=== PATIENT | female | born 1980 | race Caucasian/White ===

== ENCOUNTER 2025-02-20 18:05 | Inpatient (IN) | payer BC ==
[~2025-02-20] VITALS: Ht 165.1 cm; Wt 68.0 kg
[2025-02-20] MEDS ORDERED: ONDANSETRON 4 MG/2 ML VIAL ONE (18:37)
[2025-02-20] MEDS ORDERED: HYDROMORPHONE 1 MG/1 ML DISP.SYRIN IV ONE (18:45)
[2025-02-20] MEDS: ONDANSETRON 4 MG/2 ML VIAL IV ONE (19:00)
[2025-02-20] MEDS: IV NORMAL SALINE 1000 ML BAG IV ONE (19:12)
[2025-02-20 19:13] LABS: BASOPHILS % (AUTO) 0.1 % (0.0-2.0); EOSINOPHILS # (AUTO) 0.2 K/uL (0.0-0.7); EOSINOPHILS % (AUTO) 1.5 % (0.0-7.0); HEMATOCRIT 41.4 % (31.2-41.9); HEMOGLOBIN 13.5 g/dL (10.9-14.3); LYMPHOCYTES # (AUTO) 1.3 K/uL (0.8-4.8); LYMPHOCYTES % (AUTO) 8.7 % (20.5-51.5); MEAN CORPUSCULAR HEMOGLOBIN 30.6 uug (24.7-32.8); MEAN CORPUSCULAR HGB CONC 33 g/dL (32.3-35.6); MEAN CORPUSCULAR VOLUME 93.6 fL (75.5-95.3); MONOCYTES # (AUTO) 0.7 K/uL (0.1-1.30); MONOCYTES % (AUTO) 4.9 % (0.0-11.0); NEUTROPHILS # (AUTO) 12.9 K/uL (1.8-8.9); NEUTROPHILS % (AUTO) 84.8 % (38.5-71.5); PLATELET COUNT (AUTO) 247 K/uL (179-408); RED BLOOD CELL COUNT(AUTO) 4.42 MIL/uL (3.63-4.92); RED CELL DISTRIBUTION WIDTH 12.9 % (12.3-17.7); WHITE BLOOD COUNT (AUTO) 15.2 K/uL (3.8-11.8)
[2025-02-20] MEDS ORDERED: DICYCLOMINE HCL 20 MG/2 ML AMPUL IM SCH (19:15)
[2025-02-20] MEDS ORDERED: DICYCLOMINE HCL 20 MG TABLET ONE (19:18)
[2025-02-20 19:19] LABS: DIFFERENTIAL COMMENT 1
[2025-02-20 19:24] LABS: CARBON DIOXIDE 20 mmol/L (21-32); CHLORIDE 106 mmol/L (98-107); CREATININE 0.9 mg/dL (0.6-1.3); GLUCOSE 78 mg/dL (74-106); POTASSIUM 3.6 mmol/L (3.5-5.1); SODIUM SERUM 141 mmol/L (136-145); UREA NITROGEN, BLOOD 10 mg/dL (7-18)
[2025-02-20 19:29] LABS: ALANINE AMINOTRANSFERASE 13 U/L (14-59); ALKALINE PHOSPHATASE 84 U/L (50-136); ASPARTATE AMINOTRANSFERASE 15 U/L (15-37); BILIRUBIN,DIRECT 0.1 mg/dL (0.0-0.2); BILIRUBIN,TOTAL 0.5 mg/dL (0.2-1.0)
[2025-02-20 19:37] LABS: ALBUMIN 3.5 g/dL (3.4-5.0); LIPASE 48 U/L (16-77)
[2025-02-20 19:38] LABS: PREGNANCY TEST SERUM QUAN < 1 miul/L (0-6)
[2025-02-20 19:51] LABS: *BILIRUBIN,URIN NEGATIVE (NEGATIVE); *CLARITY,URINE CLEAR (CLEAR); *COLOR,URINE YELLOW (YELLOW); *KETONES,URINE 3+ (NEGATIVE); *PROTEIN,URINE NEGATIVE (NEGATIVE); *UROBILINOGEN,URINE 0.2 E.U./dl (NORMAL); LEUKOCYTE ESTERASE ,URINE NEGATIVE (NEGATIVE); NITRITE, URINE NEGATIVE (NEGATIVE); PH,URINE 5.5 (5.0-8.0); UGLUCOSE NEGATIVE (NEGATIVE)
[2025-02-20 19:53] LABS: *BLOOD, URINE TRACE (NEGATIVE)
[2025-02-20] MEDS ORDERED: diphenhydrAMINE 50 MG/1 ML VIAL ONE (20:04)
[2025-02-20] MEDS ORDERED: PROCHLORPERAZINE EDISYLATE 10 MG/2 ML VIAL ONE (20:04)
[2025-02-20] MEDS: PROCHLORPERAZINE EDISYLATE 10 MG/2 ML VIAL IV ONE (20:10)
[2025-02-20] MEDS: diphenhydrAMINE 50 MG/1 ML VIAL IV ONE (20:10)
[2025-02-20 20:14] LABS: BACTERIA,URINE FEW /HPF (NONE SEEN); RBC,URINE 0-3 /HPF (0-3); SQUAMOUS EPITHELIAL CELL,UR FEW /HPF (NONE SEEN); WBC,URINE 0-3 /HPF (0-3)
[2025-02-20] MEDS ORDERED: IOHEXOL 300MG/ML 100 ML INFUS..BTL ONE (20:16)
[2025-02-20] MEDS ORDERED: HYDROMORPHONE 1 MG/1 ML DISP.SYRIN ONE (21:37)
[2025-02-20] MEDS: HYDROMORPHONE 1 MG/1 ML DISP.SYRIN IV ONE (21:38)
[2025-02-20] MEDS ORDERED: REMEDY ESSENTIAL ZINC PASTE 113 GM TP PRN (22:45)
[2025-02-20] MEDS ORDERED: CEFTRIAXONE /D5W 50ML IVPB **ER PYXIS IV ONE (23:35)
[2025-02-20] MEDS: CEFTRIAXONE 1 G in IV DEXTROSE 5% 50 ML IV ONE (23:36)
[2025-02-21] MEDS ORDERED: HYDROMORPHONE 1 MG/1 ML DISP.SYRIN ONE (02:19)
[2025-02-21] MEDS: HYDROMORPHONE 1 MG/1 ML DISP.SYRIN IV ONE (02:20)
[2025-02-21] MEDS ORDERED: ONDANSETRON 4 MG/2 ML VIAL ONE (06:44)
[2025-02-21] MEDS ORDERED: DICYCLOMINE HCL 20 MG TABLET ONE (06:44)
[2025-02-21] MEDS ORDERED: MORPHINE SULFATE 4 MG/1 ML DISP.SYRIN ONE (06:44)
[2025-02-21] MEDS: IV D5 1/2 NS 1000 ML 1,000 ML IV PRN (07:03)
[2025-02-21] MEDS: MORPHINE SULFATE 4 MG/1 ML DISP.SYRIN IV PRN (07:03)
[2025-02-21] MEDS: ONDANSETRON 4 MG/2 ML VIAL IV PRN (07:04)
[2025-02-21] MEDS: DICYCLOMINE HCL 20 MG TABLET PO PRN (07:04)
[2025-02-21 07:52] LABS: BASOPHILS # (AUTO) 0.1 K/UL (0.0-0.2); BASOPHILS % (AUTO) 0.4 % (0.0-2.0); EOSINOPHILS # (AUTO) 0.1 K/uL (0.0-0.7); EOSINOPHILS % (AUTO) 1.1 % (0.0-7.0); HEMATOCRIT 35.1 % (31.2-41.9); HEMOGLOBIN 11.9 g/dL (10.9-14.3); LYMPHOCYTES # (AUTO) 1.7 K/uL (0.8-4.8); LYMPHOCYTES % (AUTO) 13.3 % (20.5-51.5); MEAN CORPUSCULAR HEMOGLOBIN 30.7 uug (24.7-32.8); MEAN CORPUSCULAR HGB CONC 34 g/dL (32.3-35.6); MEAN CORPUSCULAR VOLUME 90.8 fL (75.5-95.3); MONOCYTES # (AUTO) 0.8 K/uL (0.1-1.30); MONOCYTES % (AUTO) 6.7 % (0.0-11.0); NEUTROPHILS # (AUTO) 9.9 K/uL (1.8-8.9); NEUTROPHILS % (AUTO) 78.5 % (38.5-71.5); PLATELET COUNT (AUTO) 231 K/uL (179-408); RED BLOOD CELL COUNT(AUTO) 3.87 MIL/uL (3.63-4.92); WHITE BLOOD COUNT (AUTO) 12.7 K/uL (3.8-11.8)
[2025-02-21 07:56] LABS: DIFFERENTIAL COMMENT 1
[2025-02-21 08:03] LABS: CALCIUM 8.1 mg/dL (8.5-10.1); CREATININE 0.8 mg/dL (0.6-1.3); MAGNESIUM 1.8 mg/dL (1.8-2.4); PHOSPHOROUS 3.5 mg/dL (2.5-4.9); POTASSIUM 3.6 mmol/L (3.5-5.1)
[2025-02-21 09:30] VITALS: BP 99/57; TEMP 97.2; O2SAT 100
[2025-02-21] MEDS ORDERED: BUPR-96 PO (10:30)
[2025-02-21] MEDS ORDERED: HYDR25CA PO (10:30)
[2025-02-21] MEDS ORDERED: LIDOCAINE HCL 1% 20 ML VIAL ONE (10:56)
[2025-02-21] MEDS ORDERED: BUPIVACAINE/EPI PF 0.5% 10 ML VIAL ONE (10:56)
[2025-02-21] MEDS ORDERED: PROPOFOL 200 MG/20 ML BOTTLE ONE (11:00)
[2025-02-21] MEDS ORDERED: ROCURONIUM BROMIDE 50 MG/5 ML VIAL ONE (11:07)
[2025-02-21] MEDS ORDERED: FENTANYL CITRATE 100 MCG/2 ML AMPUL ONE (11:07)
[2025-02-21] MEDS ORDERED: MEPERIDINE 25 MG/1 ML DISP.SYRIN IV PRN (13:00)
[2025-02-21 15:49] VITALS: BP 96/56; TEMP 98; O2SAT 100
[2025-02-21 19:30] VITALS: BP 97/55; TEMP 98.9; O2SAT 97
[2025-02-21] MEDS: CEFTRIAXONE 2 G in IV DEXTROSE 5% 100 ML IV SCH (20:17)
[2025-02-22 06:13] VITALS: BP 93/56; TEMP 98.1; O2SAT 97
[2025-02-22] MEDS: KETOROLAC TROMETHAMINE 30 MG INJ IVP ONE (11:21)
[2025-02-22 11:36] VITALS: BP 91/61; TEMP 98.4; O2SAT 99
== END 2025-02-22 12:30 | disposition home or self-care (01) | DRG 398 ==
LOC: ER 18:05 → MEDSURG3 02-21 08:50 → UNDOADMIN 02-21 08:50 → MEDSURG3 02-21 18:50 → UNDODISIN 02-22 12:30
PROVIDERS: ADMIT Nurse Practitioner Acute Care; ATTEND Nurse Practitioner Acute Care
PROC: 0DTJ4ZZ Resection of Appendix, Percutaneous Endoscopic Approach (ICD-10-PCS; principal; 2025-02-21 11:00)
DX: K35.80 Unspecified acute appendicitis (principal); E87.1 Hypo-osmolality and hyponatremia; Z97.5 Presence of (intrauterine) contraceptive device; F17.290 Nicotine dependence, other tobacco product, uncomplicated; F15.11 Other stimulant abuse, in remission; Z98.82 Breast implant status
CPT/HCPCS: 36415; 83690; 83735; 84100; 85025; A4606; A4663; G0378; J0330; J0690; J0696; J0780; J1100; J1171; J1200; J1885; J2270; J2405; J2765; J3010; J3490; J7040; Q9967

== ENCOUNTER 2025-05-11 13:48 | Emergency (ER) | payer BC ==
[~2025-05-11] VITALS: Ht 165.1 cm; Wt 61.2 kg
[~2025-05-11 13:48] MED LIST: BUPR-96 PO; HYDR25CA PO
[2025-05-11 17:10] VITALS: BP 132/81; TEMP 97.8; O2SAT 100
== END 2025-05-11 17:11 | disposition home or self-care (01) ==
LOC: ER 13:48
DX: M23.92 Unspecified internal derangement of left knee (principal); F17.290 Nicotine dependence, other tobacco product, uncomplicated; Z79.899 Other long term (current) drug therapy
CPT/HCPCS: 73560; A4606; A4663